=== PATIENT | female | born 1970 | race Caucasian/White ===

== ENCOUNTER 2017-01-22 13:08 | Emergency (ER) | payer OTHER ==
[~2017-01-22] VITALS: Ht 167.6 cm; Wt 70.4 kg
[~2017-01-22 13:08] MED LIST: ALPR2TAB2 PO; LAMO25TA PO; LISI-729 PO; OXY/15 PO; POTA20TA13 PO; PRAV20TA PO; PROP40TA5 PO; PRT40 PO; ZNF4 PO
[2017-01-22 13:13] VITALS: TEMP 36.9; Ht 167.6 cm; Wt 70.4 kg
[2017-01-22] MEDS ORDERED: METH4PAK PO (13:32)
[2017-01-22] MEDS ORDERED: TIZA4CAP PO (13:32)
--- NOTE | 2017-01-22 13:35 | EMERGENCY ROOM VISIT NOTE ---
ED Visit Note First contact with patient: 13:20 CHIEF COMPLAINT: Low back pain HISTORY OF PRESENT ILLNESS: This 46-year-old female patient presents to the emergency department, ambulatory, complaining of pain in the low back which began a few days ago". The patient reports a history of chronic low back pain, and did have 2 previous laminectomies in her lumbar spine. These surgeries were performed in [place]. The patient states she attempted to use a heating pad for relief, but did not take any medications. The patient states "Tylenol does not work for me" and she states she has kidney disease and has been advised not to take NSAIDs. The patient states she was previously seeing pain management regarding her chronic low back pain, however states it was inconvenient for her, so she stopped going. The patient states she did not see her PCP because "they won't prescribe me anything". The pain was gradual in onset, is now constant and worse with movement. The patient notes the pain as sharp, and radiates down the right leg and a 8/10. The patient denies any loss of control of their bowel or bladder functions. There has been no leg numbness or weakness, and no change in sensation. No nausea or vomiting or abdominal pain. No chest pain or shortness of breath. No dysuria or increased urinary frequency. The patient denies recent fall or injury. REVIEW OF SYSTEMS: A 10 system review of systems was performed with positives and pertinent negatives listed in the history of present illness. All other systems were reviewed and are negative. ALLERGIES: Morphine, tramadol, sulfa, Toradol MEDICATIONS: Pravastatin, Protonix, lisinopril, Lamictal, Trileptal, vitamin D3 , gabapentin, Klonopin PMH: Hypertension, hyperlipidemia, anxiety, bipolar disorder, "kidney disease" SOCIAL HISTORY: The patient lives locally with her parents. She denies drug, alcohol use. The patient admits to smoking one half pack cigarettes per day. PHYSICAL EXAM: VITALS: Vitals are noted on the nurse's note and reviewed by myself. Vital signs stable. GENERAL: This is a 46-year-old white female, in no acute distress, nondiaphoretic, well-developed well-nourished. SKIN: The skin was without rashes, erythema, edema, or bruising. Capillary refill less than 2 seconds. NECK: Supple without nuchal rigidity. No cervical spine tenderness. No paraspinous muscle tenderness. HEART: Regular rate and rhythm without murmurs gallops or rubs. LUNGS: Clear to auscultation bilaterally without wheezes, rales or rhonchi. ABDOMEN: Positive bowel sounds x 4. Normal tympanic percussion. Soft, nontender, without masses or organomegaly. Ayala sign negative. MUSCULOSKELETAL: No muscle atrophy, erythema, or edema noted of the back. There is mild tenderness over the lumbar spinous processes. There is mild tenderness over the paraspinous muscles bilaterally, worse on the right. There is no tenderness over the thoracic spine or paraspinous muscles. There are mild muscle spasms present in the low back. The patient is slow to move around with maximum tenderness with position changes, sitting upright from a lying position. Positive straight leg raise test on the right. NEURO: Patient was alert and oriented to person place and time. Normal sensation to light and sharp touch. Deep tendon reflexes 2+ in the lower extremities. Dorsalis pedis pulse 2+ bilaterally. Strength 5/5 and equal in the bilateral lower extremities. EMERGENCY DEPARTMENT COURSE: Patient was seen and evaluated as above. The patient states her symptoms are similar to sciatica, which she has had in the past. I discussed with her proper treatment for sciatica. The patient was discharged home in good condition. DIFFERENTIAL DIAGNOSIS: Lumbar strain, lumbar fracture, sciatica, malignancy, degenerative disc disease, disc protrusion, arthritis, and others DIAGNOSIS: Sciatica DISCHARGE INSTRUCTIONS AND TREATMENT: You have been treated in the Emergency Department for Back Pain. You have been prescribed a Medrol Dosepak. This is a steroid which will help decrease the inflammation in your back. Take the medicine as prescribed. Take the ENTIRE 6 day course of the steroids. You have been prescribed Zanaflex, 1 tablet up to twice daily as needed for muscle spasms. Take your first dose at bedtime as it can make you drowsy. You should not drive until you know how this medication will affect you. Always take all medications as prescribed. For pain control, you can use the following [id number] medicines (if >12 yo): - Regular strength (325mg/tab) Tylenol (acetaminophen) 2 tabs every 4-6 hours as needed. Do not exceed 9 tablets in a 24 hour period. Avoid taking more than 3 grams (3000 mg) of Tylenol per day. This includes any other sources of acetaminophen you may take on a regular basis. - Regular strength (200 mg/tab) Advil (ibuprofen) 1-2 tabs every 4-6 hours as needed. Do not exceed a dose of 2400 mg per day. If this is an acute injury, ice can be applied to the area of pain for the first 3 days to help decrease pain and inflammation. After the first 3 days, a heating pad can be used over the area for continued soothing relief. You should schedule a follow-up appointment in 2-3 days with your Primary Care Provider for further evaluation and treatment of your back pain. If your pain does not improve within one week, you should follow up with your supervisor paint. Return to the Emergency Department if your current symptoms worsen despite treatment course outlined above, or if you develop any of the following symptoms : intractable pain despite aforementioned treatment course, loss of control of your bowel or bladder, numbness or tingling in your groin, or development of a fever. Problem List Medical Problems: (1) Anxiety Status: Chronic (2) Anxiety State Nos Status: Chronic (3) Bipolar 1 disorder Status: Chronic (4) Bipolar disorder Status: Chronic (5) Borderline personality disorder Status: Chronic (6) Chronic low back pain Status: Chronic (7) Diverticulitis Status: Resolved (8) Dyslipidemia Status: Chronic (9) GERD (gastroesophageal reflux disease) Status: Chronic (10) HTN (hypertension) Status: Chronic (11) Hypertension Status: Chronic (12) Kidney disease Status: Chronic (13) Kidney stone Status: Resolved (14) Lumbago Status: Chronic (15) Pancreatitis Status: Resolved (16) Polycystic kidney disease Status: Chronic Surgical Problems: (1) History of appendectomy Status: Resolved (2) History of appendectomy Permanent Comment: 2010 Status: Resolved (3) History of colectomy Status: Resolved (4) History of hysterectomy Status: Resolved (5) History of lumbar surgery Status: Resolved (6) History of partial colectomy Permanent Comment: secondary to diverticulitis in 2009 Status: Resolved (7) History of total hysterectomy Permanent Comment: 2005 secondary to excessive bleeding Status: Resolved Current/Historical Medications Scheduled Lamotrigine (Lamictal), 100 MG PO BID Lisinopril (Prinivil), 5 MG PO HS Methylprednisolone (Medrol Dosepak), 0 PO DAILY Pantoprazole (Pantoprazole Sodium), 40 MG PO DAILY Potassium Chloride Microencaps (Potassium Chloride Er), 20 MEQ PO HS Pravastatin (Pravachol ), 20 MG PO HS Propranolol Hcl (Propranolol Hcl), 40 MG PO DAILY Scheduled PRN Alprazolam (Xanax), 2 MG PO BID PRN for Anxiety Oxycodone Hcl (Oxycodone Hcl), 1 TAB PO TID PRN for Pain Tizanidine (Zanaflex ), 4 MG PO BID PRN for Pain Tizanidine Hcl (Zanaflex), 4 MG PO BID PRN for Muscle Spasms Allergies Coded Allergies: Sulfa Antibiotics (Verified Allergy, Severe, ANAPHYLAXIS, 11/16/15) Tramadol (Verified Allergy, Unknown, hives, 11/16/15) Morphine (Verified Adverse Reaction, Intermediate, puffiness, 11/16/15) Vital Signs Date Time Temp Pulse Resp B/P (MAP) Pulse Ox O2 Delivery O2 Flow Rate FiO2 01/22/17 13:13 36.9 102 20 115/79 98 Room Air Departure Information Impression Primary Impression: Sciatica Dispostion Home / Self-Care Condition GOOD Prescriptions Tizanidine Hcl (ZANAFLEX) 4 Mg Cap 4 MG PO BID Y for Muscle Spasms, #10 CAP Prov: Miriam Granados PA-C 01/22/17 Methylprednisolone (MEDROL DOSEPAK) 4 Mg Grady 0 PO DAILY, #1 PKT Prov: Miriam Granados PA-C 01/22/17 Referrals Evan Tom M.D. (PCP) Patient Instructions ED Sciatic, [facility] Additional Instructions You have been treated in the Emergency Department for Back Pain. You have been prescribed a Medrol Dosepak. This is a steroid which will help decrease the inflammation in your back. Take the medicine as prescribed. Take the ENTIRE 6 day course of the steroids. You have been prescribed Zanaflex, 1 tablet up to twice daily as needed for muscle spasms. Take your first dose at bedtime as it can make you drowsy. You should not drive until you know how this medication will affect you. Always take all medications as prescribed. For pain control, you can use the following [id number]-[id number] medicines (if >12 yo): - Regular strength (325mg/tab) Tylenol (acetaminophen) 2 tabs every 4-6 hours as needed. Do not exceed 9 tablets in a 24 hour period. Avoid taking more than 3 grams (3000 mg) of Tylenol per day. This includes any other sources of acetaminophen you may take on a regular basis. - Regular strength (200 mg/tab) Advil (ibuprofen) 1-2 tabs every 4-6 hours as needed. Do not exceed a dose of 2400 mg per day. If this is an acute injury, ice can be applied to the area of pain for the first 3 days to help decrease pain and inflammation. After the first 3 days, a heating pad can be used over the area for continued soothing relief. You should schedule a follow-up appointment in 2-3 days with your Primary Care Provider for further evaluation and treatment of your back pain. If your pain does not improve within one week, you should follow up with your supervisor paint. Return to the Emergency Department if your current symptoms worsen despite treatment course outlined above, or if you develop any of the following symptoms : intractable pain despite aforementioned treatment course, loss of control of your bowel or bladder, numbness or tingling in your groin, or development of a fever. Problem Qualifiers Primary Impression: Sciatica Laterality: right Qualified Codes: M54.31 - Sciatica, right side
[2017-01-22 13:44] VITALS: BP 142/76; PULSE 67; O2SAT 98
[2017-01-22] MEDS ORDERED: CLON0.5T3 PO (13:45)
[2017-01-22] MEDS ORDERED: PERP1TAB8 PO (13:45)
[2017-01-22] MEDS ORDERED: GABA-112 PO (13:45)
== END 2017-01-22 13:45 | disposition home or self-care (01) ==
LOC: C.EDB 13:10 → C.EDD 13:45
DX: M54.31 Sciatica, right side (principal); I10 Essential (primary) hypertension; E78.5 Hyperlipidemia, unspecified; F41.9 Anxiety disorder, unspecified; F31.9 Bipolar disorder, unspecified; N18.9 Chronic kidney disease, unspecified; K21.9 Gastro-esophageal reflux disease without esophagitis